=== PATIENT | female | born 1950 | race Caucasian/White ===

== ENCOUNTER → 2020-09-18 | Outpatient (CLI) | payer OTHER ==
[2020-09-20 11:15] LABS: RHEUMATOID ARTHRITIS FACTOR 10.4 IU/mL (0.0-13.9)
== END ==
LOC: LAB 14:09 → EDBD 14:09
PROVIDERS: Internal Medicine
DX: R53.83 Other fatigue (principal); M25.50 Pain in unspecified joint; D69.6 Thrombocytopenia, unspecified; D89.89 Other specified disorders involving the immune mechanism, not elsewhere classified; R76.0 Raised antibody titer
CPT/HCPCS: 82728; 83520; 85049; 86200; 86431